=== PATIENT | male | born 1990 | race Caucasian/White ===

== ENCOUNTER 2016-09-04 19:35 | Emergency (ER) | payer SELFPAY ==
[2016-09-04 19:46] VITALS: TEMP 99
[2016-09-04 20:30] LABS: BASO % 0.3 % (0.0-2.0); EOS # 0.1 (0.0-0.7); EOS % 0.7 % (0-4.0); GRAN # 4.6 (1.4-6.5); GRAN % 59.1 % (42.2-75.2); HEMATOCRIT 41.4 % (42.0-52.0); HEMOGLOBIN 14.2 g/dl (13.5-18.0); LYMPH # 2.5 (1.2-3.4); LYMPH % 32.8 % (20.0-51.0); MEAN CELL VOLUME 88 fl (80.0-100.0); MEAN CORPUSCULAR HEMOGLOBIN 30 pg (27.0-31.0); MEAN CORPUSCULAR HGB CONC 34 g/dl (33.0-37.0); MEAN PLATELET VOLUME 11.6 fl (7.4-10.4); MONO # 0.5 (0.1-0.6); PLATELET COUNT 183 K/mm3 (130-400); RED BLOOD COUNT 4.71 M/mm3 (4.20-5.60); WHITE BLOOD COUNT 7.7 K/mm3 (4.8-10.8)
[2016-09-04 20:40] LABS: ADJUSTED CALCIUM 8.7 mg/dL (8.4-10.2); ALANINE AMINOTRANSFERASE 34 U/L (21-72); ALBUMIN 4.7 gm/dL (3.5-5.0); ALKALINE PHOSPHATASE 85 U/L (50-136); ANION GAP 11 mmol/L (7-16); BILIRUBIN,TOTAL 0.6 mg/dL (0.0-1.0); BLOOD UREA NITROGEN 17 mg/dL (9-20); CALCIUM 9.3 mg/dL (8.4-10.2); CARBON DIOXIDE 29 mmol/L (22-30); CHLORIDE 98 mmol/L (98-107); CREATININE, serum 1.11 mg/dL (0.66-1.25); GLUCOSE 79 mg/dL (74-106); POTASSIUM 3.6 mmol/L (3.4-5.0); SODIUM 138 mmol/L (137-145)
[2016-09-04 21:00] LABS: TROPONIN-I < 0.012 ng/mL (0.000-0.034)
[2016-09-04 21:54] LABS: AMPHETAMINE URINE NEGATIVE
[2016-09-04 21:55] LABS: BARBITURATES URINE NEGATIVE
[2016-09-04 21:58] LABS: BENZODIAZEPINES URINE NEGATIVE; BUPRENORPHINE URINE NEGATIVE
[2016-09-04 21:59] LABS: METHADONE URINE NEGATIVE; OPIATES URINE NEGATIVE; OXYCODONE URINE NEGATIVE
[2016-09-04 22:00] LABS: PHENCYCLIDINE URINE NEGATIVE; PROPOXYPHENE URINE NEGATIVE
[2016-09-04 22:01] LABS: THC CANNABINOIDS URINE POSITIVE
[2016-09-04 22:06] LABS: PH 8 (5-8); URINE APPEARANCE Cloudy; URINE BILIRUBIN Negative (NEGATIVE); URINE BLOOD Negative (NEGATIVE); URINE COLOR Red; URINE GLUCOSE Negative (NEGATIVE); URINE KETONE Negative (NEGATIVE); URINE RBC None Seen /hpf; URINE UROBILINOGEN Negative (NEGATIVE); URINE WBC None Seen /hpf
[2016-09-04 22:07] LABS: SQUAMOUS EPITHELIAL 0-2 /hpf
[2016-09-04 23:23] VITALS: BP 138/84; PULSE 89
== END 2016-09-04 22:30 | disposition home or self-care (01) ==
LOC: COL.ER 19:35
PROVIDERS: Physician Assistant
DX: K29.70 Gastritis, unspecified, without bleeding (principal); R07.89 Other chest pain; F15.980 Other stimulant use, unspecified with stimulant-induced anxiety disorder; F14.980 Cocaine use, unspecified with cocaine-induced anxiety disorder
CPT/HCPCS: J1200; J2930; J7030

== ENCOUNTER 2016-11-29 06:16 | Emergency (ER) | payer SELFPAY ==
[~2016-11-29] VITALS: Ht 160 cm; Wt 75.0 kg
[2016-11-29 06:19] VITALS: BP 160/84; PULSE 101; TEMP 99.3
== END 2016-11-29 07:43 | disposition home or self-care (01) ==
LOC: COL.ER 06:16
DX: J39.2 Other diseases of pharynx (principal)